=== PATIENT | female | born 1990 | race Caucasian/White ===

== ENCOUNTER 2017-03-21 13:42 | Emergency (ER) | payer OTHER ==
[2017-03-21 13:51] VITALS: BP 120/66
--- NOTE | 2017-03-21 14:02 | ED Physician Documentation ---
PD HPI LOWER EXT INJURY - Stated complaint Stated Complaint: TOE INJURY - Chief complaint Chief Complaint: Wound - History obtained from History obtained from: Patient - History of Present Illness PD HPI LOW EXT INJURY LOCATION: Left, Toe (great toe) Type of injury: Other (tripped and fell, has laceration to the L great toe) Where injury occurred: Street Timing - onset: How many hours ago (1) Timing - duration: Hours (1) Timing - details: Abrupt onset Pain level max: 4 Pain level now: 3 Improved by: Rest Worsened by: Moving, Palpating Associated symptoms: No: Weakness, Numbness, Tingling Contributing factors: No: Anticoagulated, Prior ortho surgery Similar symptoms before: Has not had sx before Recently seen: Not recently seen Review of Systems Constitutional: denies: Fever, Chills GI: denies: Vomiting, Diarrhea Skin: denies: Rash Musculoskeletal: denies: Neck pain, Back pain Neurologic: denies: Headache PD PAST MEDICAL HISTORY - Past Medical History Past Medical History: No - Past Surgical History Past Surgical History: No - Present Medications Home Medications: Ambulatory Orders Medication Instructions Recorded Confirmed Bacitracin Zinc Oint 1 applic TOP BID #1 tube 03/21/17 - Allergies Allergies/Adverse Reactions: Allergies Allergy/AdvReac Type Severity Reaction Status Date / Time No Known Drug Allergies Allergy Verified 03/21/17 13:51 - Social History Does the pt smoke?: No Smoking Status: Never smoker Does the pt drink ETOH?: No Does the pt have substance abuse?: No - Immunizations Immunizations are current?: Yes PD ED PE NORMAL - Vitals Vital signs reviewed: Yes - General General: Alert and oriented X 3, No acute distress - HEENT HEENT: Moist mucous membranes - Derm Derm: Warm and dry - Extremities Extremities: Other (L great toe, abrasion/superfical flap laceration to the tip of the toe. no bleeding. NVI) - Neuro Neuro: Alert and oriented X 3 - Psych Psych: Normal mood, Normal affect Results - Vitals Vitals: Vital Signs - 24 hr 03/21/17 13:49 Temperature 37.1 C Heart Rate 75 Respiratory 18 Rate Blood Pressure 120/66 O2 Saturation 99 Oxygen O2 Source Room air PD MEDICAL DECISION MAKING - ED course Complexity details: considered differential, d/w patient ED course: Patient with a superficial laceration/abrasion to the toe. The skin was removed the wound was irrigated thoroughly, cleansed and bandaged with bacitracin. Patient tolerated well. No nail injury. No evidence of bony injury. Warnings of infection and instructions on wound care given at bedside. Also counseled on how to minimize scarring. Patient counseled regarding signs and symptoms for which I believe and urgent re-evaluation would be necessary. Patient with good understanding of and agreement to plan and is comfortable going home at this time This document was made in part using voice recognition software. While efforts are made to proofread this document, sound alike and grammatical errors may occur. Departure - Departure Disposition: Home, Self Care Clinical Impression: Toe avulsion Qualifiers: Encounter type: initial encounter Qualified Code(s): S91.109A - Unspecified open wound of unspecified toe(s) without damage to nail, initial encounter Condition: Good Instructions: ED Laceration Amputation Finger Tip Open Tx Follow-Up: your,doctor in 3-5 days for wound check [Other] Prescriptions: Bacitracin Zinc Oint 1 applic TOP BID #1 tube Comments: Return if you worsen. Keep the wound clean. Discharge Date/Time: 03/21/17 14:41
[2017-03-21] MEDS ORDERED: BACITRACIN OINT TOP ONE (14:38)
== END 2017-03-21 14:41 | disposition home or self-care (01) ==
LOC: ED 13:42
DX: S91.112A Laceration without foreign body of left great toe without damage to nail, initial encounter (principal); W01.0XXA Fall on same level from slipping, tripping and stumbling without subsequent striking against object, initial encounter
CPT/HCPCS: 99283

== ENCOUNTER 2017-08-07 11:18 | Emergency (ER) | payer OTHER ==
--- NOTE | 2017-08-07 13:20 | ED Physician Documentation ---
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 She sustained a small chip to the front tooth, no bleeding. Mild jaw pain. Able to open and close the jaw able to eat and drink. Sent here as it was a work-related injury. No loss of consciousness. No vomiting. No headache Review of Systems Constitutional: denies: Fever : denies: Now EGA Skin: denies: Rash Musculoskeletal: denies: Neck pain, Back pain Neurologic: denies: Confused, Altered mental status, LOC PD PAST MEDICAL HISTORY - Past Medical History Past Medical History: Yes - Past Surgical History Past Surgical History: No - Present Medications Home Medications: Ambulatory Orders Medication Instructions Recorded Confirmed No Known Home Medications [No 08/07/17 08/07/17 Known Home Medications] - Allergies Allergies/Adverse Reactions: Allergies Allergy/AdvReac Type Severity Reaction Status Date / Time Sulfa (Sulfonamide Allergy Hives Verified 08/07/17 11:29 Antibiotics) - Social History Does the pt smoke?: No Smoking Status: Never smoker Does the pt drink ETOH?: No Does the pt have substance abuse?: No - Immunizations Immunizations are current?: Yes PD ED PE NORMAL - Vitals Vital signs reviewed: Yes - General General: Alert and oriented X 3, No acute distress - HEENT HEENT: Moist mucous membranes - Neck Neck: Supple, no meningeal sign, No bony TTP - Neuro Neuro: Alert and oriented X 3 Eye Opening: Spontaneous Motor: Obeys Commands Verbal: Oriented GCS Score: 15 - Psych Psych: Normal mood, Normal affect PD ED PE EXPANDED - HEENT HEENT Visual: 1 - tenderness (very small chip. no dentin or pulp exposed. no loosening of the tooth.) Results - Vitals Vitals: Vital Signs - 24 hr 08/07/17 08/07/17 11:26 13:21 Temperature 36.6 C 36.5 C Heart Rate 82 76 Respiratory 17 16 Rate Blood Pressure 127/62 106/66 O2 Saturation 99 100 Oxygen O2 Source Room air PD MEDICAL DECISION MAKING - ED course Complexity details: considered differential, d/w patient ED course: Patient is a 27-year-old female who presents to the emergency department with a left upper front tooth injury sustained at work today. No intervention required here. No significant mandibular tenderness. No evidence of fracture. Able to eat and drink. We will have her follow-up with the dentist for further care of her tooth. Will release her back to work. Patient counseled regarding signs and symptoms for which I believe and urgent re-evaluation would be necessary. Patient with good understanding of and agreement to plan and is comfortable going home at this time This document was made in part using voice recognition software. While efforts are made to proofread this document, sound alike and grammatical errors may occur. Departure - Departure Disposition: 01 Home, Self Care Clinical Impression: Concussion injury of tooth Contusion of jaw Qualifiers: Encounter type: initial encounter Qualified Code(s): S00.83XA - Contusion of other part of head, initial encounter Condition: Good Instructions: ED Contusion Face Follow-Up: your,doctor in 1 week if not better [Other] Comments: You should follow up with a dentist within the next week if your tooth is still bothering you after 2-3 days. You can use motrin or tylenol as needed for pain. Discharge Date/Time: 08/07/17 13:24
[2017-08-07 13:22] VITALS: BP 106/66
== END 2017-08-07 13:24 | disposition home or self-care (01) ==
LOC: ED 11:18
DX: S06.0X0A Concussion without loss of consciousness, initial encounter (principal); S00.83XA Contusion of other part of head, initial encounter; S00.502A Unspecified superficial injury of oral cavity, initial encounter; W51.XXXA Accidental striking against or bumped into by another person, initial encounter; Y93.89 Activity, other specified; Y92.219 Unspecified school as the place of occurrence of the external cause; Y99.0 Civilian activity done for income or pay
CPT/HCPCS: 1040M; 99282; 99283